=== PATIENT | male | born 1985 | race Caucasian/White ===

== ENCOUNTER 2016-10-22 15:36 | Emergency (ER) | payer SELFPAY ==
[~2016-10-22] VITALS: Ht 188 cm; Wt 90.0 kg
[~2016-10-22 15:36] MED LIST: CIPR500T2 PO; HYDR10TA16 PO; Z.0.NO CURRENT MEDS
[2016-10-22 15:37] VITALS: BP 139/69; PULSE 87; RESP 16; TEMP 98.4; O2SAT 100
--- NOTE | 2016-10-22 15:47 | PD ---
Physical Exam Time Seen by Provider: 15:46 Narrative 30 y/o male here with R foot/ankle pain after colliding with someone playing basketball this morning. Vital signs reviewed. Seen at triage desk. Awaiting bed placement. Data Data Last Documented VS Vital Signs Date Time Temp Pulse Resp B/P Pulse Ox O2 Delivery O2 Flow Rate FiO2 10/22/16 15:37 98.4 87 16 139/69 100 MDM Medical Record Reviewed: Yes Supervised Visit with POLY: Emil Barclay Oct 22, 2016 15:47
--- NOTE | 2016-10-22 17:25 | PD ---
HPI Chief Complaint: Injury Time Seen by Provider: 17:24 Travel History International Travel<30 days: No Contact w/Intl Traveler<30days: No Traveled to known affect area: No History of Present Illness HPI 30 YO M presents to the ED for evaluation of right ankle pain. Onset after colliding with another person while playing basketball today. Patient was able to take a few steps on the ankle. Denies numbness, tingling, weakness, limitations to range of motion of the extremity. Denies previous injury. No treatment attempted at home. He is ambulating with crutches on presentation. PFSH Past Medical History Asthma: Yes Headaches: Yes Tetanus Vaccination: > 5 Years Influenza Vaccination: No Past Surgical History Surgical History: No Previous Surgery Social History Alcohol Use: Yes (8 BEERS DAILY) Tobacco Use: Yes (1 PPD) Substance Use: Yes (WEED AND CRACK) Allergies-Medications (Allergen,Severity, Reaction): Coded Allergies: Bee Sting (Verified Allergy, Mild, SWELL UP, 10/22/16) Cultivated Oat Pollen (Verified Allergy, Mild, SNEEZ, 10/22/16) Dust (Verified Allergy, Mild, SOB, 10/22/16) Reported Meds & Prescriptions Reported Meds & Active Scripts Active Ibuprofen 800 Mg Tab 800 Mg PO Q8H Review of Systems Except as stated in HPI: all other systems reviewed are Neg Physical Exam Narrative GENERAL: Well-nourished, well-developed male in no acute distress. SKIN: Focused skin assessment warm/dry. Large cyst lateral to the right eye. No signs of infection. HEAD: Normocephalic. EYES: No scleral icterus. No injection or drainage. NECK: Supple, trachea midline. No JVD or lymphadenopathy. CARDIOVASCULAR: Regular rate and rhythm without murmurs, gallops, or rubs. RESPIRATORY: Breath sounds equal bilaterally. No accessory muscle use. GASTROINTESTINAL: Abdomen soft, non-tender, nondistended. MUSCULOSKELETAL: No cyanosis, or edema. FOCUSED RIGHT LOWER EXTREMITY EXAM: 2+ DP pulse. No ecchymosis or edema. Tender to palpation of the malleoli. No base of the fifth or navicular tenderness. Patient is able to flex and extend the ankle. Flexion elicits pain. Neurovascularly intact. BACK: Nontender without obvious deformity. No CVA tenderness. Data Data Last Documented VS Vital Signs Date Time Temp Pulse Resp B/P Pulse Ox O2 Delivery O2 Flow Rate FiO2 10/22/16 17:13 Room Air 10/22/16 15:37 98.4 87 16 139/69 100 Orders Ankle, Complete ([id number]) (10/22/16 17:28) Ice/Cold Pack (10/22/16 17:28) Ibuprofen (Motrin) (10/22/16 17:30) Sharan Bandage (10/22/16 18:08) Crutches (10/22/16 18:14) MDM Medical Decision Making Medical Screen Exam Complete: Yes Emergency Medical Condition: Yes Differential Diagnosis Ankle strain versus ankle sprain versus fracture versus musculoskeletal pain versus contusion versus other Narrative Course 30 YO M presents to the ED for evaluation of right ankle pain. Onset after colliding with another person while playing basketball today. Patient was able to take a few steps on the ankle. Denies numbness, tingling, weakness, limitations to range of motion of the extremity. Denies previous injury. Vitals reviewed. There is bimalleolar tenderness on physical exam but otherwise unremarkable. She was administered 800 mg ibuprofen, ice pack was applied. X-rays reveal no acute bony injury per radiology read. This is ankle sprain. Patient was provided with appropriate pair of crutches, prescription for anti-inflammatories. He is instructed to rest, ice, elevate the extremity, take medications as prescribed, follow-up with orthopedist. He indicated understanding of instructions and is agreeable to the care plan. He is stable and discharged home. Diagnosis Primary Impression: Right ankle sprain Qualified Code: S93.401A - Sprain of right ankle, unspecified ligament, initial encounter Referrals: Orthopedist Patient Instructions: Ankle Sprain (ED), Ankle Sprain Exercises (GEN), General Instructions Additional Instructions: Rest, ice, elevate the extremity. Apply ice no longer than 10-15 minutes per hour a few times a day. 800 mg ibuprofen up to 3 times a day as needed for pain. Return to normal, gentle activity as tolerated. No running, jumping activities for the next few weeks. Follow up with orthopedist or your primary care provider. Return to the ED for any urgent or emergent medical condition. Med/Other Pt SpecificInfo: Prescription(s) given Scripts Ibuprofen 800 Mg [id number] Mg PO Q8H #15 TAB Ref 0 Prov:Alexandra Gross MD 10/22/16 Disposition: 01 DISCHARGE HOME Condition: Stable Kaya Beasley Oct 22, 2016 17:25
[2016-10-22] MEDS ORDERED: IBUPROFEN 800 MG TAB PO ONE (17:30)
--- NOTE | 2016-10-22 18:00 | RADRPT ---
EXAM DATE/TIME: 10/22/2016 17:48 [facility] COMPARISON: No previous studies available for comparison. INDICATIONS : Right ankle pain after twisting ankle. MEDICAL HISTORY : None. SURGICAL HISTORY : None. ENCOUNTER: Initial ACUITY: 1 day PAIN SCORE: 8/10 LOCATION: Right medial ankle. FINDINGS: No definite fractures, or dislocations are identified. No definite lytic or sclerotic lesion is seen . The joint spaces are well maintained. CONCLUSION: Unremarkable study. Demond Alvarez MD on October 22, 2016 at 17:58 Board Certified Radiologist. This report was verified electronically.
[2016-10-22] MEDS ORDERED: IBUP800T23 PO (18:08)
== END 2016-10-22 18:32 | disposition home or self-care (01) ==
LOC: NEPK 15:36
DX: S93.401A Sprain of unspecified ligament of right ankle, initial encounter (principal); F17.200 Nicotine dependence, unspecified, uncomplicated; Z87.09 Personal history of other diseases of the respiratory system; W51.XXXA Accidental striking against or bumped into by another person, initial encounter; Y93.67 Activity, basketball
CPT/HCPCS: 73610; 99283; E0113

== ENCOUNTER 2017-09-04 09:26 | Emergency (ER) | payer SELFPAY ==
[~2017-09-04 09:26] MED LIST changes: -CIPR500T2 PO; -HYDR10TA16 PO; +IBUP1TAB7 PO; -Z.0.NO CURRENT MEDS
[2017-09-04 09:38] VITALS: BP 158/72; PULSE 57; RESP 20; TEMP 98.3; O2SAT 98
[2017-09-04] MEDS ORDERED: CLIN300C5 PO (09:43)
--- NOTE | 2017-09-04 09:53 | PD ---
HPI . Toothache Chief Complaint: Oral / Dental Pain or Problem Time Seen by Provider: 09:35 Travel History International Travel<30 days: No Contact w/Intl Traveler<30days: No Traveled to known affect area: No History of Present Illness HPI Patient presents via [facility] with the chief complaint of right facial pain and toothache. Onset was 1-1/2 weeks ago. Location is right upper. Progression is worse since yesterday. Description of symptoms is pressure with occasional throbbing. Temporary relief with Tylenol or aspirin. Severity is 10/10. He has not called or seen a dentist. [facility] Past Medical History Medical History: Denies Significant Hx Asthma: Yes Headaches: Yes Tetanus Vaccination: > 5 Years Past Surgical History Surgical History: No Previous Surgery Social History Alcohol Use: Yes (8 BEERS DAILY) Tobacco Use: Yes (1 PPD) Substance Use: Yes (WEED AND CRACK) Allergies-Medications (Allergen,Severity, Reaction): Coded Allergies: bee venom protein (honey bee) (Unverified Allergy, Mild, SWELL UP, 09/04/17 ) grass pollen (Unverified Allergy, Mild, SNEEZ, 09/04/17) house dust (Unverified Allergy, Mild, SOB, 09/04/17) Reported Meds & Prescriptions Reported Meds & Active Scripts Active Clindamycin (Clindamycin HCl) 300 Mg Cap 600 Mg PO Q8H 10 Days Review of Systems Except as stated in HPI: all other systems reviewed are Neg Physical Exam Narrative GENERAL: Awake and alert and in no acute distress. SKIN: Warm and dry. Normal color and turgor. No redness or warmth of the skin of the right side of the face. HEAD: Normocephalic/atraumatic. No swelling. EYES: Pupils are equal. Extraocular movements are intact. ENT: Partially erupted right maxillary wisdom tooth with tenderness to percussion. The gingiva is not edematous or erythematous. NECK: Normal range of motion. Supple. No adenopathy. CARDIOVASCULAR: Regular rate and rhythm. RESPIRATORY: Nonlabored respirations. Normal sats. MUSCULOSKELETAL: Atraumatic. Normal muscle tone. NEUROLOGICAL: A and O 3. Nonfocal. PSYCHIATRIC: Appropriate mood and affect. Data Data Last Documented VS Vital Signs Date Time Temp Pulse Resp B/P (MAP) Pulse Ox O2 Delivery O2 Flow Rate FiO2 09/04/17 09:38 98.3 57 20 158/72 (100) 98 Orders Orders Ed Discharge Order (09/04/17 09:44) MDM Medical Decision Making Medical Screen Exam Complete: Yes Emergency Medical Condition: Yes Differential Diagnosis Differential diagnosis of a toothache includes but is not limited to dental caries, dental abscess, gingivitis, drug-seeking behavior. Narrative Course This patient presents with a toothache. Except for tenderness to percussion over the partially erupted right maxillary wisdom tooth, he has no physical exam findings. No facial swelling or erythema. No gingival erythema or edema. No cervical lymphadenopathy. He will be discharged home with a prescription for clindamycin. Diagnosis Primary Impression: Toothache Patient Instructions: General Instructions, Toothache (ED) Departure Forms: Tests/Procedures Scripts Clindamycin (Clindamycin) 300 Mg Cap 600 MG PO Q8H for Infection for 10 Days, #60 CAP 0 Refills Prov: Swati Carreon MD 09/04/17 Disposition: 01 DISCHARGE HOME Condition: Stable Swati Carreon MD Sep 04, 2017 09:53
== END 2017-09-04 10:20 | disposition home or self-care (01) ==
LOC: NEPD 09:26
DX: K08.89 Other specified disorders of teeth and supporting structures (principal); J45.909 Unspecified asthma, uncomplicated; F17.210 Nicotine dependence, cigarettes, uncomplicated
CPT/HCPCS: 99283